=== PATIENT | female | born 1990 | race Caucasian/White ===

== ENCOUNTER 2020-04-05 13:50 | Emergency (ER) | payer MEDICAID ==
[2020-04-05 14:05] VITALS: BP 116/82
[2020-04-05] MEDS ORDERED: BUFFERED LIDOCAINE 10 ML SYRINGE SUBQ STA (14:10)
--- NOTE | 2020-04-05 14:12 | ED Physician Documentation ---
History of Present Illness - Stated complaint Stated Complaint: L ARM SORE - Chief complaint Chief Complaint: Ext Problem - History obtained from History obtained from: Patient - Additonal information Additional information: 29-year-old female presents the emergency department for evaluation of a left forearm abscess. This is a shooters abscess. She reports that she began developing erythema in this area about a week ago but over the last 48 hours it has grown steadily into a large palpable abscess. She has a history of similar in the past. She denies any history of diabetes. No fevers. She is attempting to get into recovery at [facility]. They have a bed pending for her in April. She does also have a history of hepatitis C that has not been treated secondary to nonsobriety. Reports tetanus is up-to-date within the last 3 months. Allergies to amoxicillin. Review of Systems Constitutional: reports: Reviewed and negative Eyes: reports: Reviewed and negative Ears: reports: Reviewed and negative Nose: reports: Reviewed and negative Cardiac: reports: Reviewed and negative Respiratory: reports: Reviewed and negative GI: reports: Reviewed and negative : reports: Dysuria Skin: reports: Other (3x3 cm palpable abscess left forearm with surrounding erythema but no induration) Musculoskeletal: reports: Reviewed and negative Neurologic: reports: Reviewed and negative Psychiatric: reports: Reviewed and negative PD PAST MEDICAL HISTORY - Allergies Allergies/Adverse Reactions: Allergies Allergy/AdvReac Type Severity Reaction Status Date / Time amoxicillin [From Augmentin] AdvReac Nausea Verified 04/05/20 14:06 clavulanic acid AdvReac Nausea Verified 04/05/20 14:06 [From Augmentin] PD ED PE EXPANDED - General General: Alert, No acute distress - Neck Neck: Supple w/out meningeal sx, No tenderness - Cardiac Cardiac: Regular Rate, Regular Rhythm, Radial strong equal, Cap refill < 2 sec. No: Murmur Present - Respiratory Respiratory: Clear to ausultation nellie. No: Distress, Labored - Abdomen Abdomen: Normal Bowel sounds. No: Tender to palpation - Extremities Extremities: Left forearm (3 cm palpable abscess left forearm with mild surrounding erythema but no induration. Some purulent drainage from abscess noted) - Neuro Neuro: Alert and Oriented X 3, CNII-XII intact - GCS Eye Opening: Spontaneous Motor: Obeys Commands Verbal: Oriented Total: 15 Results - Vitals Vitals: Vital Signs - 24 hr 04/05/20 13:58 Temperature 36.9 C Heart Rate 66 Respiratory 16 Rate Blood Pressure 116/82 H O2 Saturation 998 H Oxygen O2 Source Room air PD MEDICAL DECISION MAKING - ED course ED course: 29-year-old female presents emergency department for evaluation and treatment of a left forearm shooters abscess. She does have noted surrounding cellulitis. I discussed with the patient the need for incision and drainage of this abscess. At the bedside we had started the preparation work for the incision and drainage and I began to inject lidocaine to achieve some anesthesia. However patient did not tolerate that and simply got up and walked out of the emergency department. I encouraged her to stay. I offered antibiotics and lieu of incision and drainage but she could not be reasoned with. Pt would not remain to sign AMA paperwork Departure - Departure Disposition: 07 Against Medical Advice Clinical Impression: Abscess of left forearm Condition: Stable
== END 2020-04-05 14:20 | disposition left against medical advice (07) ==
LOC: ED 13:50
DX: L02.414 Cutaneous abscess of left upper limb (principal); L03.114 Cellulitis of left upper limb; B19.20 Unspecified viral hepatitis C without hepatic coma; Z88.0 Allergy status to penicillin; Z53.20 Procedure and treatment not carried out because of patient's decision for unspecified reasons
CPT/HCPCS: 99281; 99282